=== PATIENT | male | born 1950 | race Caucasian/White ===

== ENCOUNTER 2018-05-31 10:32 | Outpatient (REF) | payer OTHER, SELFPAY ==
[2018-05-31 19:44] LABS: Potassium 4.1 mmol/L (3.5-5.1)
== END 2018-05-31 10:52 ==
LOC: NCHCN 10:32
PROVIDERS: PCP Physician Assistant; Visit Provider Internal Medicine
DX: E87.6 Hypokalemia (principal)
CPT/HCPCS: 84132

== ENCOUNTER 2018-07-05 11:29 | Outpatient (REF) | payer OTHER, SELFPAY ==
[2018-07-05 19:33] LABS: Cholesterol 222 mg/dL (50-200); Glucose 92 mg/dL (70-100); HDL Cholesterol 50 mg/dL (40-60); LDL CHOLESTEROL 136 mg/dL (<100); Triglyceride 168 mg/dL (30-150)
[2018-07-07 11:14] LABS: PSA, Screening 6.4 ng/ml (0-4.5)
== END 2018-07-05 11:49 ==
LOC: NCHCN 11:29
PROVIDERS: PCP Physician Assistant; Visit Provider Internal Medicine
DX: Z00.00 Encounter for general adult medical examination without abnormal findings (principal); Z12.5 Encounter for screening for malignant neoplasm of prostate; R97.20 Elevated prostate specific antigen [PSA]; Z13.220 Encounter for screening for lipoid disorders
CPT/HCPCS: 80061; 82947; 83721; 84153

== ENCOUNTER 2019-07-31 08:53 | Outpatient (REF) | payer OTHER, SELFPAY | END 2019-07-31 09:13 | LOC: NCHCN 08:53 | PROVIDERS: PCP Physician Assistant; Visit Provider Internal Medicine | DX: R97.20 Elevated prostate specific antigen [PSA] (principal) | CPT/HCPCS: 84153 ==

== ENCOUNTER 2020-07-18 14:24 | Outpatient (REF) | payer OTHER, SELFPAY ==
[2020-07-18 19:31] LABS: ALT 48 U/L (16-63); CREATININE 1.07 mg/dL (0.70-1.30); Calculated LDL 63 mg/dL (<100); Cholesterol 161 mg/dL (<200); HDL Cholesterol 49 mg/dL (40-60); Triglyceride 247 mg/dL (<150)
[2020-07-18 19:46] LABS: Creatine Kinase 108 U/L (39-308)
[2020-07-23 13:26] LABS: PSA, Diagnostic 5.7 ng/ml (0-4.5)
== END 2020-07-18 14:44 ==
LOC: NCHCN 14:24
PROVIDERS: PCP Physician Assistant; Visit Provider Internal Medicine
DX: R97.20 Elevated prostate specific antigen [PSA] (principal); E78.5 Hyperlipidemia, unspecified; K21.9 Gastro-esophageal reflux disease without esophagitis; M54.5 Low back pain
CPT/HCPCS: 80061; 82550; 82565; 84153; 84460

== ENCOUNTER 2021-03-26 18:55 | Outpatient (REF) | payer OTHER, SELFPAY ==
[2021-03-26 19:58] LABS: Anion Gap 10.7 mmol/L (3-11); BUN 20 mg/dL (7-18); CO2 25.3 mmol/L (21.0-32.0); Calcium 9.1 mg/dL (8.5-10.1); Chloride 106 mmol/L (98-107); Glucose 100 mg/dL (74-106); Potassium 4.2 mmol/L (3.5-5.1); Sodium 142 mmol/L (136-145)
[2021-03-28 09:05] LABS: PSA, Diagnostic 6.3 ng/mL (0.0-4.5)
== END 2021-03-26 18:56 | disposition home or self-care (01) ==
LOC: NCHCN 18:55
PROVIDERS: PCP Physician Assistant; Visit Provider Physician Assistant
DX: R35.0 Frequency of micturition (principal); R97.20 Elevated prostate specific antigen [PSA]
CPT/HCPCS: 80048; 84153

== ENCOUNTER 2021-07-23 15:48 | Outpatient (REF) | payer OTHER, SELFPAY ==
[2021-07-24 18:28] LABS: PSA, Diagnostic 6.8 ng/mL (0.0-4.5)
== END 2021-07-23 15:49 | disposition home or self-care (01) ==
LOC: NCHCN 15:48
PROVIDERS: PCP Physician Assistant; Visit Provider Internal Medicine
DX: R97.20 Elevated prostate specific antigen [PSA] (principal); Z80.42 Family history of malignant neoplasm of prostate
CPT/HCPCS: 84153

== ENCOUNTER 2022-01-14 18:11 | Outpatient (REF) | payer MEDICARE, SELFPAY ==
[2022-01-15 18:35] LABS: PSA, Diagnostic 6.9 ng/mL (<=6.5)
== END 2022-01-14 18:12 | disposition home or self-care (01) ==
LOC: LBN 18:11
PROVIDERS: PCP Physician Assistant; Visit Provider Urology
DX: R35.0 Frequency of micturition (principal)
CPT/HCPCS: 84153

== ENCOUNTER 2022-07-24 14:53 | Outpatient (REF) | payer MEDICARE, SELFPAY ==
[2022-07-24 19:32] LABS: ALT 70 U/L (16-63); Anion Gap 4.7 mmol/L (3-11); BUN 22 mg/dL (7-18); CO2 30.3 mmol/L (21.0-32.0); CREATININE 1.2 mg/dL (0.70-1.30); Calcium 9.7 mg/dL (8.5-10.1); Calculated LDL 70 mg/dL (<100); Chloride 105 mmol/L (98-107); Cholesterol 150 mg/dL (<200); Estimated GFR 65.06 (mL/min/1.73m2); Glucose 126 mg/dL (74-106); HDL Cholesterol 56 mg/dL (40-60); Potassium 3.8 mmol/L (3.5-5.1); Sodium 140 mmol/L (136-145); Triglyceride 123 mg/dL (<150)
[2022-07-24 19:50] LABS: Creatine Kinase 125 U/L (39-308)
[2022-07-27 09:20] LABS: PSA, Diagnostic 7.3 ng/mL (<=6.5)
== END 2022-07-24 14:54 | disposition home or self-care (01) ==
LOC: NCHCN 14:53
PROVIDERS: PCP Physician Assistant; Visit Provider Internal Medicine
DX: E78.5 Hyperlipidemia, unspecified (principal); N40.0 Benign prostatic hyperplasia without lower urinary tract symptoms; R73.09 Other abnormal glucose; R79.89 Other specified abnormal findings of blood chemistry
CPT/HCPCS: 80048; 80061; 82550; 84153; 84460

== ENCOUNTER 2023-01-29 14:23 | Outpatient (REF) | payer MEDICARE, SELFPAY ==
[2023-02-01 09:00] LABS: PSA, Diagnostic 6.8 ng/mL (<=6.5)
== END 2023-01-29 14:24 | disposition home or self-care (01) ==
LOC: NCHCN 14:23
PROVIDERS: PCP Physician Assistant; Visit Provider Urology
DX: R97.20 Elevated prostate specific antigen [PSA] (principal)
CPT/HCPCS: 84153

== ENCOUNTER 2023-07-26 11:57 | Outpatient (REF) | payer MEDICARE, SELFPAY ==
[2023-07-26 19:37] LABS: ALT 56 U/L (16-63); BUN 25 mg/dL (7-18); CREATININE 0.9 mg/dL (0.70-1.30); Calculated LDL 68 mg/dL (<100); Chloride 103 mmol/L (98-107); Cholesterol 155 mg/dL (<200); Estimated GFR 91.31 (mL/min/1.73m2); Glucose 98 mg/dL (74-106); HDL Cholesterol 50 mg/dL (40-60); Sodium 138 mmol/L (136-145); Triglyceride 185 mg/dL (<150)
[2023-07-26 19:59] LABS: Creatine Kinase 71 U/L (39-308)
[2023-07-27 18:29] LABS: PSA, Diagnostic 9.2 ng/mL (<=6.5)
[2023-08-05 11:24] LABS: Testosterone, Free 13.2 ng/dL (3.28-12.2); Testosterone, Total 521 ng/dL (240-950)
== END 2023-07-26 11:58 | disposition home or self-care (01) ==
LOC: NCHCN 11:57
PROVIDERS: PCP Physician Assistant; Visit Provider Internal Medicine
DX: Z00.00 Encounter for general adult medical examination without abnormal findings (principal); R97.20 Elevated prostate specific antigen [PSA]; Z80.42 Family history of malignant neoplasm of prostate
CPT/HCPCS: 80048; 80061; 82550; 84402; 84403; 84153; 84460

== ENCOUNTER 2024-01-28 10:45 | Outpatient (REF) | payer MEDICARE, SELFPAY ==
[2024-01-31 10:58] LABS: PSA, Diagnostic 7.3 ng/mL (<=6.5)
== END 2024-01-28 10:46 | disposition home or self-care (01) ==
LOC: LBN 10:45
PROVIDERS: PCP Physician Assistant; Visit Provider Urology
DX: N40.0 Benign prostatic hyperplasia without lower urinary tract symptoms (principal); R97.20 Elevated prostate specific antigen [PSA]
CPT/HCPCS: 84153

== ENCOUNTER 2024-07-28 15:54 | Outpatient (REF) | payer MEDICARE, SELFPAY ==
[2024-07-28 19:15] LABS: ALT 43 U/L (16-63); Anion Gap 11.1 mmol/L (3-11); BUN 21 mg/dL (7-18); CO2 28.9 mmol/L (21.0-32.0); CREATININE 1.1 mg/dL (0.70-1.30); Calcium 9.9 mg/dL (8.5-10.1); Chloride 106 mmol/L (98-107); Creatine Kinase 117 U/L (39-308); Estimated GFR 71.32 (mL/min/1.73m2); Glucose 98 mg/dL (74-106); Potassium 4.4 mmol/L (3.5-5.1); Sodium 146 mmol/L (136-145)
[2024-07-28 19:54] LABS: Calculated LDL 43 mg/dL (<100); Cholesterol 144 mg/dL (<200); HDL Cholesterol 58 mg/dL (40-60); Triglyceride 216 mg/dL (<150); Vitamin B12 509 pg/mL (193-986); Vitamin D 25 Total 79.4 ng/mL (30-100)
[2024-07-31 09:50] LABS: PSA, Diagnostic 4.6 ng/mL (<=6.5)
== END 2024-07-28 15:55 | disposition home or self-care (01) ==
LOC: NCHCN 15:54
PROVIDERS: PCP Internal Medicine; Visit Provider Internal Medicine
DX: Z00.00 Encounter for general adult medical examination without abnormal findings (principal)
CPT/HCPCS: 80048; 80061; 82306; 82550; 82607; 82746; 84153; 84460

== ENCOUNTER 2025-05-22 15:01 | Outpatient (REF) | payer MEDICARE, SELFPAY ==
[2025-05-23 18:14] LABS: PSA, Diagnostic 4.0 ng/mL (<=6.5)
== END 2025-05-22 15:02 | disposition home or self-care (01) ==
LOC: NCHCN 15:01
PROVIDERS: PCP Internal Medicine; Visit Provider Internal Medicine
DX: N40.1 Benign prostatic hyperplasia with lower urinary tract symptoms (principal)
CPT/HCPCS: 84153

== ENCOUNTER 2025-08-02 15:36 | Outpatient (REF) | payer MEDICARE, SELFPAY ==
[2025-08-02 19:42] LABS: ALT 52 U/L (10-49); AST 31 U/L (<34); Albumin 4.3 g/dL (3.4-5.0); Alkaline Phosphatase 54 U/L (46-116); Anion Gap 8.3 mmol/L (3-11); BUN 17 mg/dL (9-23); Bilirubin, Total 0.80 mg/dL (0.2-1.2); CO2 26.7 mmol/L (20.0-31.0); Calcium 9.4 mg/dL (8.3-10.6); Chloride 108 mmol/L (98-107); Glucose 143 mg/dL (74-106); Potassium 3.6 mmol/L (3.5-5.1); Sodium 143 mmol/L (136-145); Total Protein 7.0 g/dL (5.7-8.2)
== END 2025-08-02 15:37 | disposition home or self-care (01) ==
LOC: NCHCN 15:36
PROVIDERS: PCP Internal Medicine; Visit Provider Physician Assistant
DX: E78.5 Hyperlipidemia, unspecified (principal)
CPT/HCPCS: 80053